=== PATIENT | female | born 1945 | race Caucasian/White ===

== ENCOUNTER 2017-12-31 07:47 | Observation (INO) ==
[2017-12-31] MEDS ORDERED: Temazepam 15 MG Capsule PO PRN (16:10)
[2017-12-31] MEDS ORDERED: Acetaminophen 325 MG Tablet PO PRN (16:10)
--- NOTE | 2017-12-31 16:29 | P.HPIM ---
History of Present Illness Primary Care Physician: Nicanor Davis MD History of Present Illness: Mrs. Marie is a pleasant 72 y/o female with HTN, GERD, anxiety/depression, and osteoarthritis. Pt reports that around 7 weeks ago she started having pain under her left breast and would feel like her heart was racing. This occurring sporadically but started occurring more frequently. Over this past weekend she had two episodes and then this morning she had another episode that lasted about an hour and a half. She denies any associated nausea/vomiting, diaphoresis , SOB. She presented to the ED in [place] and was found to be in A. fib RVR with HR in the 130s and she was given IV Cardizem and the HR improved to the 80s. She reports that after about 20 mins she felt the chest pain and palpitations improve. She denies any exertional chest pain. Denies any hx of CAD , asthma, COPD, JEANA, thyroid issues, liver issues. She reports its been at least 10 years ago since her last stress test with Dr. Mcgrath. She is treated for HTN. Pt denies any recent viral illness. No new medications. PCP is Dr. Nicanor Davis Past Medical Hx: HTN GERD Anxiety/depression Osteoarthritis Hx of nephrolithiasis Past Surgical hx: Bilateral breast reduction surgery Hysterectomy at 26 y/o Cholecystectomy Bilateral total knee arthroplasties Tonsillectomy with adenoidectomy Family Hx: Son with early onset Parkinson's disease, dx at age 32, currently age 47 Social Hx: Occasional social alcohol use, maybe once per month. Denies any tobacco or illicit drug use Pt works at [employer] - Diagnosis (1) New onset a-fib (2) Atypical chest pain (3) HTN (hypertension) (4) GERD (gastroesophageal reflux disease) (5) Anxiety and depression Inpatient Certification: I certify that the inpatient services were ordered in accordance with Medicare regulations governing the order. This includes certification that hospital inpatient services are reasonable and necessary and in the case of services not specified as inpatient-only under 42 CFR 419.22(n), that they are appropriately provided as inpatient services in accordance to with the 2-midnight benchmark under 43 CFR 412.3(e) Estimated Total Length of Stay (Days): 2 Plans for Post Hospital Care: Not yet determined Review of Systems All other systems reviewed negative except as stated in HPI Constitutional: Denies chills, Denies fever(s) Eyes: Denies loss of vision Ears, Nose, Mouth, and Throat: Denies dizziness Cardiovascular: Reports chest pain, Reports fast heart rate, Reports irregular heart rhythm, Reports rapid, pounding, or irregular heartbeat, Denies leg swelling, Denies lightheadedness, Denies shortness of breath Respiratory: Denies cough, Denies shortness of breath Gastrointestinal: Denies abdominal pain, Denies constipation, Denies heartburn, Denies loose stools, Denies nausea, Denies vomiting Genitourinary: Denies urinary incontinence, Denies urinary urgency Musculoskeletal: Denies back pain, Denies joint pain, Denies neck pain Skin/Breast: Denies rash Neurologic: Denies confusion, Denies dizziness, Denies headache(s), Denies tingling/numbness/burning sensations Psychiatric: Denies anxiety, Denies depression [facility] - History History Provided By: Patient - Medical History Medical History: Medical History (Last Updated 12/31/17 @ 08:33 by Patricia Ho) GERD (gastroesophageal reflux disease) HTN (hypertension) Hx of hysterectomy - Surgical History Surgical History: Surgical History (Last Updated 12/31/17 @ 08:33 by Ptaricia Ho) History of bilateral knee replacement Hx of breast reduction, elective Hx of cholecystectomy Hx of tonsillectomy - Tobacco History Second Hand Smoke Exposure: No Smoking Status: Never smoker - Alcohol History How Often Do You Have a Drink Containing Alcohol: Never - Substance Use History Substance History: No History of Abuse Medications and Allergies Allergies Allergy/AdvReac Type Severity Reaction Status Date / Time Sulfa (Sulfonamide Allergy Mild Hives Verified 12/31/17 08:41 Antibiotics) Home Medications Medication Instructions Recorded Confirmed Type aspirin 81 mg PO DAILY 12/31/17 12/31/17 History bupropion HCl [Wellbutrin SR] 150 mg PO BID 12/31/17 12/31/17 History hydrochlorothiazide 12.5 mg PO DAILY 12/31/17 12/31/17 History lamotrigine 100 mg PO BID 12/31/17 12/31/17 History lansoprazole [Prevacid] 30 mg PO DAILY 12/31/17 12/31/17 History losartan 100 mg PO DAILY 12/31/17 12/31/17 History meloxicam 7.5 mg PO DAILY PRN 12/31/17 12/31/17 History methyldopa 500 mg PO BID 12/31/17 12/31/17 History metoprolol tartrate 25 mg PO BID 12/31/17 12/31/17 History Active Medications: Active Medications Acetaminophen (Tylenol) 650 mg PO Q4H PRN PRN Reason: Temp > 100.4 Al Hydroxide/Mg Hydroxide (Milk Of Rafaela Chapman) 30 ml PO Q12H PRN PRN Reason: Mild Constipation Aspirin (Aspirin Chew) 81 mg PO DAILY AYLA Bupropion HCl (Wellbutrin Sr) 150 mg PO BID AYLA Lamotrigine (Lamictal) 100 mg PO BID AYLA Methyldopa (Aldomet) 500 mg PO BID AYLA Non-Formulary Medication (Lansoprazole [Prevacid]) 30 mg PO DAILY AYLA Ondansetron HCl (Zofran Odt) 4 mg PO Q4H PRN PRN Reason: nausea/vomiting Senna/Docusate Sodium (Alvina-Colace) 1 tab PO BID AYLA Temazepam (Restoril) 15 mg PO HS PRN PRN Reason: INSOMNIA Exam Vital signs: Vital Signs 12/31/17 14:55 Temperature 97.9 F Pulse Rate 113 H Respiratory Rate 16 Blood Pressure 142/78 H Pulse Oximetry 97 Narrative: GENERAL: NAD, AAox3 SKIN: Warm and dry. HEENT: Atraumatic. Normocephalic. Pupils equal and round. No scleral icterus. No injection or drainage. No nasal bleeding or discharge. Mucous membranes pink and moist. NECK: Trachea midline. No JVD. CARDIO: Irregularly irregular RESP: No accessory muscle use. Clear to auscultation. Breath sounds equal bilaterally. ABD: +BS, soft, non-tender, nondistended. Hepatic and splenic margins not palpable. EXT: Extremities without clubbing, cyanosis, or edema. No obvious deformities. NEURO: Awake and alert. No obvious cranial nerve deficits. Motor grossly within normal limits. Five out of 5 muscle strength in the arms and legs. Normal speech. PSYCHIATRIC: Appropriate mood and affect; insight and judgment normal. Caprini VTE Risk Assessment Caprini VTE Risk Assessment: Moderate/High Risk (score >= 2) Caprini Risk Assessment Model: Point Value = 1 Point Value = 2 Point Value = 3 Point Value = 5 Age 41-60 Minor surgery BMI > 25 kg/m2 Swollen legs Varicose veins or History of unexplained or recurrent spontaneous Oral contraceptives or hormone replacement Sepsis (< 1 month) Serious lung disease, including pneumonia (< 1 month) Abnormal pulmonary function Acute myocardial infarction Congestive heart failure (< 1 month) History of inflammatory bowel disease Medical patient at bed rest Age 61-74 Arthroscopic surgery Major open surgery (> 45 min) Laparoscopic surgery (> 45 min) Malignancy Confined to bed (> 72 hours) Immobilizing plaster cast Central venous access Age >= 75 History of VTE Family history of VTE Factor V Leiden Prothrombin [id number] Lupus anticoagulant Anticardiolipin antibodies Elevated serum homocysteine Heparin-induced thrombocytopenia Other congenital or acquired thrombophilia Stroke (< 1 month) Elective arthroplasty Hip, pelvis, or leg fracture Acute spinal cord injury (< 1 month) Prophylaxis Regimen: Total Risk Factor Score Risk Level Prophylaxis Regimen 0-1 Low Early ambulation 2 Moderate Order ONE of the following: *Sequential Compression Device (SCD) *Heparin 5000 units SQ BID 3-4 Higher Order ONE of the following medications: *Heparin 5000 units SQ TID *Enoxaparin/Lovenox 40 mg SQ daily (WT < 150 kg, CrCl > 30 mL/min) *Enoxaparin/Lovenox 30 mg SQ daily (WT < 150 kg, CrCl > 10-29 mL/min) *Enoxaparin/Lovenox 30 mg SQ BID (WT < 150 kg, CrCl > 30 mL/min) AND/OR *Sequential Compression Device (SCD) 5 or more Highest Order ONE of the following medications: *Heparin 5000 units SQ TID (Preferred with Epidurals) *Enoxaparin/Lovenox 40 mg SQ daily (WT < 150 kg, CrCl > 30 mL/min) *Enoxaparin/Lovenox 30 mg SQ daily (WT < 150 kg, CrCl > 10-29 mL/min) *Enoxaparin/Lovenox 30 mg SQ BID (WT < 150 kg, CrCl > 30 mL/min) AND *Sequential Compression Device (SCD) Assessment and Plan - Assessment (1) New onset a-fib Code(s): I48.91 - Unspecified atrial fibrillation Status: Acute Plan: New onset A. fib Atypical chest pain Elevated troponin I - Pt is a 72 y/o female with HTN, GERD, anxiety/depression, and osteoarthritis. - Pt presented to the ED in [place] with atypical chest pain and palpitations which had been going on intermittently for the last 7 weeks - Pt was found to be in A. fib RVR with HR in the 130s and she was given IV Cardizem and the HR improved to the 80s. - Check TSH/Free T4 - Pts mild elevation in troponin I is likely related to her A. fib RVR but we will trend CE and EKGs - Keep pt on telemetry - 2D echo - Pt takes Metoprolol 25mg po BID as an outpt and has not missed any doses. Resume this medication this evening at increases dose to 50mg po BID and monitor HR - CHADVASC2 score is 3, qualifying the pt for NOAC. This was discussed with the pt and we will start Eliquis 5mg po BID - Supportive care - DVT prophylaxis with SCDs HTN - Pt takes Metoprolol 25mg po BID, Losartan 100mg po daily, HCTZ 12.5mg po daily , and Methyldopa 500mg BID at home for BP control - Resume Metoprolol at increased dose of 50mg po BID, decrease Losartan to 50mg po daily, resume HCTZ with parameters to hold for systolic less than 120 - Monitor vitals GERD - PPI The exam, history, and the medical decision-making described in the above note were completed with the assistance of the mid-level provider. I reviewed and agree with the findings presented. I attest that I had a [id number] encounter with the patient on the same day, and personally performed and documented my assessment and findings in the medical record. palpitation association with chest discomfort. intermittently 7 weeks. decribes alot of stress with and son health problems. found to have new afib/rvr. will trend trops but likely related to rapid afib chadsvasc score is 3 so recc. jacob will try to get rate control by titrating up on her bb. tele. echo ordered. tsh. 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 (2) Atypical chest pain Code(s): R07.89 - Other chest pain Status: Acute (3) HTN (hypertension) Code(s): I10 - Essential (primary) hypertension Status: Acute (4) GERD (gastroesophageal reflux disease) Code(s): K21.9 - Gastro-esophageal reflux disease without esophagitis Status: Acute (5) Anxiety and depression Code(s): F41.9 - Anxiety disorder, unspecified; F32.9 - Major depressive disorder, single episode, unspecified Status: Acute H&P: Quality - VTE Deep Vein Thrombosis/Pulmonary Embolism Present on Admission: No
[2017-12-31] MEDS ORDERED: Metoprolol Tartrate 50 MG Tablet PO ONE (17:08)
[2017-12-31 18:01] LABS: Troponin I 0.05 ng/mL (0.02-0.05)
[2017-12-31] MEDS: lamoTRIgine 100 MG Tablet PO SCH (20:52)
[2017-12-31] MEDS: Metoprolol Tartrate 50 MG Tablet PO SCH (20:54)
[2017-12-31] MEDS: Senna/Docusate Sodium 8.6/50 MG Tablet PO SCH (21:37)
[2017-12-31] MEDS: buPROPion 150 MG 12 HR Tablet PO SCH (21:37)
[2017-12-31 23:33] LABS: Troponin I 0.05 ng/mL (0.02-0.05)
[2018-01-01 06:08] LABS: Baso % (Auto) 0.5 % (0.0-2.0); Eos # (Auto) 0.1 th/mm3 (0.0-0.4); Hematocrit 42.2 % (35.0-46.0); Hemoglobin 14.1 gm/dL (11.6-15.3); Lymph # (Auto) 2.7 th/mm3 (1.0-4.8); Lymph % (Auto) 43.1 % (9.0-44.0); Mean Corpuscular HGB Conc 33.3 % (32.0-36.0); Mean Corpuscular Hemoglobin 29.2 pg (27.0-34.0); Mean Corpuscular Volume 87.7 fL (80.0-100.0); Mono # (Auto) 0.5 th/mm3 (0.0-0.9); Mono % (Auto) 7.5 % (0.0-8.0); Neut % (Auto) 46.9 % (16.0-70.0); Platelet Count 266 th/mm3 (150-450); Red Blood Count 4.81 mil/mm3 (4.00-5.30); Red Cell Distribution Width 14.6 % (11.6-17.2); White Blood Count 6.4 th/mm3 (4.0-11.0)
[2018-01-01 06:32] LABS: Calcium 8.7 mg/dL (8.5-10.1); Carbon Dioxide 29.5 meq/L (21.0-32.0); Potassium 3.5 meq/L (3.5-5.1)
[2018-01-01 06:42] LABS: Free T4 (Free Thyroxine) 0.86 ng/dL (0.76-1.46); Thyroid Stimulating Hormone 1.48 uIU/mL (0.358-3.740)
[2018-01-01] MEDS: Metoprolol Tartrate 50 MG Tablet PO SCH ×2 (09:25→22:13)
[2018-01-01] MEDS: lamoTRIgine 100 MG Tablet PO SCH ×2 (09:27→22:13)
[2018-01-01] MEDS: buPROPion 150 MG 12 HR Tablet PO SCH ×2 (09:27→22:16)
[2018-01-01] MEDS: Senna/Docusate Sodium 8.6/50 MG Tablet PO SCH ×2 (09:28→22:15)
[2018-01-01] MEDS: hydroCHLOROthiazide 25 MG Tablet PO SCH (09:29)
--- NOTE | 2018-01-01 09:56 | P.PNIM ---
Subjective Interval history: doing well. no cp. no palpitation has been ambulating. Physical Exam Vital signs: Vital Signs 12/31/17 14:55 12/31/17 17:26 12/31/17 20:00 Temperature 97.9 F 98.1 F Pulse Rate 113 H 139 H 71 Respiratory Rate 16 16 Blood Pressure 142/78 H 138/82 Pulse Oximetry 97 95 01/01/18 01:53 01/01/18 04:00 01/01/18 08:00 Temperature 98.5 F 98.7 F 98.0 F Pulse Rate 74 70 67 Respiratory Rate 20 16 18 Blood Pressure 164/83 H 150/87 H 150/70 H Pulse Oximetry 97 99 98 Intake & Output 12/31/17 01/01/18 01/01/18 18:59 06:59 18:59 Intake Total 240 / 240 Balance 240 / 240 Weight 99.3 kg Intake: Oral 240 / 240 Other: # Voids 2 heart reg lung cta abd s/nt ext no edema Results - Labs CBC & Chem 7: 01/01/18 05:11 01/01/18 05:11 Laboratory Results - last 24 hr 12/31/17 12/31/17 01/01/18 17:20 22:27 05:11 WBC 6.4 RBC 4.81 Hgb 14.1 Hct 42.2 MCV 87.7 MCH 29.2 MCHC 33.3 RDW 14.6 Plt Count 266 MPV 8.0 Neut % (Auto) 46.9 Lymph % (Auto) 43.1 Sauk % (Auto) 7.5 Eos % (Auto) 2.0 Baso % (Auto) 0.5 Neut # (Auto) 3.0 Lymph # (Auto) 2.7 Sauk # (Auto) 0.5 Eos # (Auto) 0.1 Baso # (Auto) 0.0 WBC Differential . Differential Comment Auto diff final Sodium Potassium Chloride Carbon Dioxide Anion Gap BUN Creatinine Estimated GFR Random Glucose Calcium Total Creatine Kinase 89 77 Troponin I 0.05 0.05 TSH Free T4 01/01/18 05:11 WBC RBC Hgb Hct MCV MCH MCHC RDW Plt Count MPV Neut % (Auto) Lymph % (Auto) Sauk % (Auto) Eos % (Auto) Baso % (Auto) Neut # (Auto) Lymph # (Auto) [place] # (Auto) Eos # (Auto) Baso # (Auto) WBC Differential Differential Comment Sodium 145 Potassium 3.5 Chloride 109 H Carbon Dioxide 29.5 Anion Gap 7 BUN 23 H Creatinine 0.92 Estimated GFR 60 L Random Glucose 92 Calcium 8.7 Total Creatine Kinase Troponin I TSH 1.480 Free T4 0.86 Assessment and Plan - Assessment (1) New onset a-fib Code(s): I48.91 - Unspecified atrial fibrillation Status: Inactive Plan: New onset A. fib Atypical chest pain Elevated troponin I - Pt is a 72 y/o female with HTN, GERD, anxiety/depression, and osteoarthritis. - Pt presented to the ED in [place] with atypical chest pain and palpitations which had been going on intermittently for the last 7 weeks - Pt was found to be in A. fib RVR with HR in the 130s and she was given IV Cardizem and the HR improved to the 80s. - Pts mild elevation in troponin I is likely related to her A. fib RVR but we will trend CE and EKGs - CHADVASC2 score is 3, qualifying the pt for NOAC. This was discussed with the pt and we will start Eliquis 5mg po BID increased metoprolol from 25mg bid to 50mg bid. so far controlling her rate and currently in sinus. monitor on tele. echo today. tsh nml. anticoagulation started with eliquis her losartan lowered after increasing bb. will monitor for further adjustment needs. monitor today on the new medication regimen. If stable then dc and have her f/u with her lift mechanic. HTN - Pt takes Metoprolol 25mg po BID, Losartan 100mg po daily, HCTZ 12.5mg po daily , and Methyldopa 500mg BID at home for BP control - Resume Metoprolol at increased dose of 50mg po BID, decrease Losartan to 50mg po daily, resume HCTZ with parameters to hold for systolic less than 120 - Monitor vitals GERD - PPI (2) Atypical chest pain Code(s): R07.89 - Other chest pain Status: Inactive (3) HTN (hypertension) Code(s): I10 - Essential (primary) hypertension Status: Chronic (4) GERD (gastroesophageal reflux disease) Code(s): K21.9 - Gastro-esophageal reflux disease without esophagitis Status: Chronic (5) Anxiety and depression Code(s): F41.9 - Anxiety disorder, unspecified; F32.9 - Major depressive disorder, single episode, unspecified Status: Chronic
--- NOTE | 2018-01-01 10:05 | ECG ---
Date Performed: 12/31/2017 Time Performed: 23:31:55 PTAGE: 72 years EKG: Sinus rhythm NORMAL ECG INTERPRETATION BASED ON A DEFAULT AGE OF 40 YEARS PREVIOUS TRACING : 09/03/2009 04.07 DOCTOR: Jeffery Wood Interpretating Date/Time 01/01/2018 10:03:34
[2018-01-01] MEDS: UPDATE PATIENT HEIGHT IN MEDITECH - CALL PHARMACY OTHER SCH ×2 (13:37→17:48)
[2018-01-02 06:13] LABS: Calcium 8.6 mg/dL (8.5-10.1); Carbon Dioxide 29.7 meq/L (21.0-32.0); Magnesium 2.2 mg/dL (1.5-2.5); Potassium 3.3 meq/L (3.5-5.1)
--- NOTE | 2018-01-02 08:13 | P.PNIM ---
Subjective Interval history: no cp or palpitation ambulated all day yesterday eager for dc no dizziness Physical Exam Vital signs: Vital Signs 01/01/18 09:00 01/01/18 10:00 01/01/18 10:49 Temperature 97.9 F Pulse Rate 74 64 65 Respiratory Rate 16 Blood Pressure 152/86 H Pulse Oximetry 97 01/01/18 11:00 01/01/18 12:00 01/01/18 13:00 Temperature Pulse Rate 64 64 64 Respiratory Rate Blood Pressure Pulse Oximetry 01/01/18 14:00 01/01/18 14:45 01/01/18 15:00 Temperature 98.0 F Pulse Rate 64 64 65 Respiratory Rate 16 Blood Pressure 153/95 H Pulse Oximetry 98 01/01/18 20:00 01/01/18 21:00 01/01/18 22:00 Temperature 97.6 F Pulse Rate 63 64 64 Respiratory Rate 20 Blood Pressure 152/94 H Pulse Oximetry 97 01/01/18 23:00 01/02/18 00:00 01/02/18 01:00 Temperature 98.2 F 97.6 F Pulse Rate 64 60 64 Respiratory Rate 20 20 Blood Pressure 159/98 H 159/98 H Pulse Oximetry 98 96 01/02/18 02:00 01/02/18 03:00 01/02/18 04:00 Temperature 97.6 F Pulse Rate 62 60 63 Respiratory Rate 20 Blood Pressure 159/98 H Pulse Oximetry 96 01/02/18 05:00 01/02/18 06:00 Temperature Pulse Rate 60 60 Respiratory Rate Blood Pressure Pulse Oximetry Intake & Output 01/01/18 01/02/18 01/02/18 18:59 06:59 18:59 Intake Total 480 / 480 Output Total 200 / 200 Balance 280 / 280 Weight 99.3 kg 99.7 kg Intake: Oral 480 / 480 Output: Urine 200 / 200 Other: # Voids 2 2 Weight On Admission 99.3 kg heart reg lung cta abd s/nt ext no edema Results - Labs CBC & Chem 7: 01/01/18 05:11 01/02/18 04:56 Laboratory Results - last 24 hr 01/02/18 04:56 Sodium 143 Potassium 3.3 L Chloride 105 Carbon Dioxide 29.7 Anion Gap 8 BUN 19 H Creatinine 0.74 Estimated GFR 77 L Random Glucose 94 Calcium 8.6 Magnesium 2.2 Assessment and Plan - Assessment (1) New onset a-fib Code(s): I48.91 - Unspecified atrial fibrillation Status: Acute Plan: New onset A. fib Atypical chest pain Elevated troponin I - Pt is a 72 y/o female with HTN, GERD, anxiety/depression, and osteoarthritis. - Pt presented to the ED in [place] with atypical chest pain and palpitations which had been going on intermittently for the last 7 weeks - Pt was found to be in A. fib RVR with HR in the 130s and she was given IV Cardizem and the HR improved to the 80s. - Pts mild elevation in troponin I is likely related to her A. fib RVR but we will trend CE and EKGs - CHADVASC2 score is 3, qualifying the pt for NOAC. This was discussed with the pt and we will start Eliquis 5mg po BID increased metoprolol from 25mg bid to 50mg bid. so far controlling her rate and currently in sinus. monitor on tele. echo today. tsh nml. anticoagulation started with eliquis her losartan lowered after increasing bb. but her bp a little high so will increase back to original dose dc home after echo. f/u this week with her distribution center manager to reassess her. addendum; bp elevated this evening. went back up on her losartan and prn clonidine given. sbp 160s and pt wants to go home now and f/u with her distribution center manager tomorrow. She is asx currently. HTN - Pt takes Metoprolol 25mg po BID, Losartan 100mg po daily, HCTZ 12.5mg po daily , and Methyldopa 500mg BID at home for BP control - Resume Metoprolol at increased dose of 50mg po BID, resume home dose losartan. , resume HCTZ with parameters to hold for systolic less than 120 - Monitor vitals GERD - PPI (2) Atypical chest pain Code(s): R07.89 - Other chest pain Status: Acute (3) HTN (hypertension) Code(s): I10 - Essential (primary) hypertension Status: Chronic (4) GERD (gastroesophageal reflux disease) Code(s): K21.9 - Gastro-esophageal reflux disease without esophagitis Status: Chronic (5) Anxiety and depression Code(s): F41.9 - Anxiety disorder, unspecified; F32.9 - Major depressive disorder, single episode, unspecified Status: Chronic
[2018-01-02] MEDS: Metoprolol Tartrate 50 MG Tablet PO SCH (08:46)
[2018-01-02] MEDS: lamoTRIgine 100 MG Tablet PO SCH (08:46)
[2018-01-02] MEDS: buPROPion 150 MG 12 HR Tablet PO SCH (08:46)
[2018-01-02] MEDS: hydroCHLOROthiazide 25 MG Tablet PO SCH (08:47)
[2018-01-02] MEDS: UPDATE PATIENT HEIGHT IN MEDITECH - CALL PHARMACY OTHER SCH ×5 (09:23→09:38)
[2018-01-02] MEDS: Senna/Docusate Sodium 8.6/50 MG Tablet PO SCH (09:41)
--- NOTE | 2018-01-02 16:39 | ECHRPT ---
Indication: ATRILA FIB/FLUTTER CONCLUSIONS Normal left ventricular size. Wall thickness is normal. The left ventricular systolic function is normal with an estimated ejection fraction of 65%. The left atrial size is mildly dilated. Moderate mitral valve regurgitation. There is trace tricuspid valve regurgitation. The estimated pulmonary arterial pressure is 50 mmHg. BP: / HR: Rhythm: Sinus MEASUREMENTS (Male / Female) Normal Values Technical Quality:Fair 2D ECHO LV Diastolic Diameter PLAX 5.5 cm 4.2 - 5.9 / 3.9 - 5.3 cm LV Systolic Diameter PLAX 3.8 cm IVS Diastolic Thickness 1.0 cm 0.6 - 1.0 / 0.6 - 0.9 cm LVPW Diastolic Thickness 1.0 cm 0.6 - 1.0 / 0.6 - 0.9 cm LV Relative Wall Thickness 0.3 RV Internal Dim ED PLAX 2.2 cm LVOT Diameter 2.0 cm Aortic Root Diameter 2.8 cm LA Systolic Diameter LX 4.2 cm 3.0 - 4.0 / 2.7 - 3.8 cm DOPPLER AV Peak Velocity 116.0 cm/s AV Peak Gradient 5.4 mmHg AV Mean Gradient 3.0 mmHg AV Velocity Time Integral 22.8 cm LVOT Peak Velocity 82.7 cm/s LVOT Peak Gradient 2.7 mmHg LVOT Velocity Time Integral 17.1 cm AV Area Cont Eq vti 2.4 cm AV Area Cont Eq pk 2.2 cm Mitral E Point Velocity 119.0 cm/s Mitral A Point Velocity 45.0 cm/s Mitral E to A Ratio 2.6 LV E' Lateral Velocity 10.4 cm/s Mitral E to LV E' Lateral Ratio 11.4 LV E' Septal Velocity 8.1 cm/s Mitral E to LV E' Septal Ratio 14.7 TR Peak Velocity 316.0 cm/s TR Peak Gradient 40.0 mmHg Right Atrial Pressure 10.0 mmHg Pulmonary Artery Systolic Pressu 49.9 mmHg Right Ventricular Systolic Press 49.9 mmHg PV Peak Velocity 60.2 cm/s PV Peak Gradient 1.4 mmHg FINDINGS LEFT VENTRICLE Normal left ventricular size. Wall thickness is normal. The left ventricular systolic function is normal with an estimated ejection fraction of 65%. RIGHT VENTRICLE Normal right ventricular size and systolic function. LEFT ATRIUM The left atrial size is mildly dilated. RIGHT ATRIUM The right atrial size is normal. ATRIAL SEPTUM No atrial level shunt is demonstrated by color flow Doppler interrogation. AORTA The aortic root and proximal ascending aorta are normal in size on limited imaging. MITRAL VALVE Moderate mitral valve regurgitation. AORTIC VALVE Trileaflet aortic valve. No aortic valve stenosis or regurgitation. TRICUSPID VALVE There is trace tricuspid valve regurgitation. The estimated pulmonary arterial pressure is 49.9 mmHg. PULMONARY VALVE No pulmonary valve regurgitation or stenosis. VESSELS The inferior vena cava is normal in size. PERICARDIUM No pericardial effusion. A prominent epicardial fat pad is present. Tali Palacios MD, FACC (Electronically Signed) Final Date:02 January 2018 16:38
== END 2018-01-02 18:08 | disposition home or self-care (01) ==
LOC: HCIS 07:47 → NEDDLT 07:47 → NEPHCDU 13:14 → INTOOBSV 13:14 → HCIS 23:43
PROVIDERS: ADMIT Hospitalist; ATTEND Hospitalist